=== PATIENT | female | born 2005 | race African-American/Black ===

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

== ENCOUNTER 2023-03-24 17:27 | Emergency (ER) | payer BC, OTHER ==
[2023-03-24 17:36] VITALS: BP 112/78; PULSE 77; RESP 18; TEMP 98.2
--- NOTE | 2023-03-24 17:47 | ED ---
General Adult HPI - General Chief complaint: Recheck/Abnormal Lab/Rx Stated complaint: Nexplanon Removal Time Seen by Provider: 03/24/23 17:38 Source: patient Mode of arrival: ambulatory Limitations: no limitations - History of Present Illness Initial comments: Patient is a 17-year-old female who presents to the emergency department seeking nexplanon removal. Patient states it is 3 months and she is having abnormal menstrual periods therefore she wants it out. No lightheadedness, dizziness, shortness of breath. She denies any pain in her arm. No fever, chills, nausea, vomiting. Patient does not have a meat manager currently. - Related Data Home Medications Medication Instructions Recorded Confirmed No Known Home Medications 08/09/19 08/09/19 Allergies Allergy/AdvReac Type Severity Reaction Status Date / Time acetaminophen [From Tylenol] Allergy Anaphylaxis Verified 03/24/23 17:36 ibuprofen [From Motrin] Allergy Anaphylaxis Verified 03/24/23 17:36 NSAIDS (Non-Steroidal Allergy Anaphylaxis Verified 03/24/23 17:36 Anti-Inflamma Review of Systems ROS Statement: Those systems with pertinent positive or pertinent negative responses have been documented in the HPI. ROS Other: All systems not noted in ROS Statement are negative. Past Medical History Past Medical History: Asthma Additional Past Medical History / Comment(s): migraines History of Any Multi-Drug Resistant Organisms: None Reported Past Surgical History: No Surgical Hx Reported Past Psychological History: No Psychological Hx Reported Smoking Status: Current every day smoker Past Alcohol Use History: None Reported Past Drug Use History: Marijuana General Exam Limitations: no limitations General appearance: alert, in no apparent distress Head exam: Present: atraumatic, normocephalic, normal inspection Eye exam: Present: normal appearance, PERRL, EOMI. Absent: scleral icterus, conjunctival injection, periorbital swelling Respiratory exam: Present: normal lung sounds bilaterally. Absent: respiratory distress, wheezes, rales, rhonchi, stridor Cardiovascular Exam: Present: regular rate, normal rhythm, normal heart sounds. Absent: systolic murmur, diastolic murmur, rubs, gallop, clicks Extremities exam: Present: other (nexplanon visualized and left arm no surrounding erythema, swelling, blanching, warmth, tenderness. Neurovascularly intact) Course Vital Signs 03/24/23 17:34 Temperature 98.2 F Pulse Rate 77 Respiratory 18 Rate Blood Pressure 112/78 O2 Sat by Pulse 99 Oximetry Medical Decision Making - Medical Decision Making Was pt. sent in by a medical professional or institution (DONITA Hauser, SLUDGE MILL OPERATOR, urgent care, hospital, or custodial...) When possible be specific @ -[No] Did you speak to anyone other than the patient for history (EMS, parent, family, police, friend...)? What history was obtained from this source @ -[No] Did you review nursing and triage notes (agree or disagree)? Why? @ -[I reviewed and agree with nursing and triage notes] Were old charts reviewed (outside hosp., previous admission, EMS record, old EKG, old radiological studies, urgent care reports/EKG's, custodial records)? Report findings @ -[No old charts were reviewed] Differential Diagnosis (chest pain, altered mental status, abdominal pain women, abdominal pain men, vaginal bleeding, weakness, fever, dyspnea, syncope, h eadache, dizziness, GI bleed, back pain, seizure, CVA, palpatations, mental health)? @ -[not applicable] EKG interpreted by me (3pts min.). @ -[As above] X-rays interpreted by me (1pt min.). @ -[None done] CT interpreted by me (1pt min.). @ -[None done] U/S interpreted by me (1pt. min.). @ -[None done] What testing was considered but not performed or refused? (CT, X-rays, U/S, labs)? Why? @ -[None] What meds were considered but not given or refused? Why? @ -[None] Did you discuss the management of the patient with other professionals (professionals i.e. DONITA Hauser, SLUDGE MILL OPERATOR, lab, RT, psych nurse, social media community manager, grocery stock clerk, teacher, airplane first officer, wrapper caser)? Give summary @ -[No] Was smoking cessation discussed for >3mins.? @ -[No] Was critical care preformed (if so, how long)? @ -[No] Were there social determinants of health that impacted care today? How? (Homelessness, low income, unemployed, alcoholism, drug addiction, transportation, low edu. Level, literacy, decrease access to med. care, retirement, rehab)? @ -[No] Was there de-escalation of care discussed even if they declined (Discuss DNR or withdrawal of care, Hospice)? DNR status @ -[No] What co-morbidities impacted this encounter? (DM, HTN, Smoking, COPD, CAD, Cancer, CVA, ARF, Chemo, Hep., AIDS, mental health diagnosis, sleep apnea, morbid obesity)? @ -[None] Was patient admitted / discharged? Hospital course, mention meds given and route, prescriptions, significant lab abnormalities, going to OR and other pertinent info. @ -Patient seeking nexplanon removal. There is no evidence of infection. Patient informed unfortunately we are not trained to perform removal in the emergency department. Patient is referred to a meat manager for further evaluation and management. Undiagnosed new problem with uncertain prognosis? @ -[No] Drug Therapy requiring intensive monitoring for toxicity (Heparin, Nitro, Insulin, Cardizem)? @ -[No] Were any procedures done? @ -[No] Diagnosis/symptom? @ -encounter for nexplanon removal Acute, or Chronic, or Acute on Chronic? @ -acute Uncomplicated (without systemic symptoms) or Complicated (systemic symptoms)? @ -uncomplicated Side effects of treatment? @ -[No] Exacerbation, Progression, or Severe Exacerbation? @ -[No] Poses a threat to life or bodily function? How? (Chest pain, [place], [place], pneumonia, PE, COPD, DKA, ARF, appy, cholecystitis, CVA, Diverticulitis, Homicidal, Suicidal, threat to staff... and all critical care pts) @ -[No] Dr. Goodwin is my attending Disposition Clinical Impression: Encounter for Nexplanon removal Disposition: HOME SELF-CARE Condition: Good Instructions (If sedation given, give patient instructions): Control Implant (DC) Additional Instructions: Follow up with gynecology in one to 2 days. Return to the emergency department if you experience new, concerning, or worsening symptoms. Is patient prescribed a controlled substance at d/c from ED?: No Referrals: None,Stated [Primary Care Provider] - 1-2 days Yuliya Lang MD [STAFF PHYSICIAN] - 1-2 days
== END 2023-03-24 17:58 | disposition home or self-care (01) ==
LOC: EC 17:27
DX: Z30.46 Encounter for surveillance of implantable subdermal contraceptive (principal); J45.909 Unspecified asthma, uncomplicated; F17.200 Nicotine dependence, unspecified, uncomplicated; F12.90 Cannabis use, unspecified, uncomplicated; Z88.6 Allergy status to analgesic agent
CPT/HCPCS: 99282

== ENCOUNTER 2023-09-19 20:48 | Emergency (ER) | payer OTHER ==
[2023-09-19 21:17] VITALS: RESP 18
--- NOTE | 2023-09-19 21:59 | ED ---
Fall HPI - General Chief Complaint: Fall Stated Complaint: Lacs on Right hand, Head Injury Time Seen by Provider: 09/19/23 21:38 Source: patient, RN notes reviewed, old records reviewed Mode of arrival: ambulatory Limitations: no limitations - History of Present Illness Initial Comments: This is a 17-year-old female who fell Going down some wet stairs. Patient did land on her right side arm hit the left side of her head. Patient does have a minor headache but is awake alert talking moving and has no significant nausea vomiting or other complaints. Patient complains of some pain to her right hand and some abrasions her fingers. 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 Fall Witnessed: yes, by family Place Fall Occurred: home Loss of Consciousness: none Prolonged Down Time?: no Symptoms Prior to Fall: none Location: head Location - Extremities: Right: Hand Severity: mild Severity scale (1-10): 1 Context: tripped/slipped Associated Symptoms: denies - Related Data Home Medications Medication Instructions Recorded Confirmed No Known Home Medications 08/09/19 08/09/19 Allergies Allergy/AdvReac Type Severity Reaction Status Date / Time acetaminophen [From Tylenol] Allergy Anaphylaxis Verified 03/24/23 17:36 ibuprofen [From Motrin] Allergy Anaphylaxis Verified 03/24/23 17:36 NSAIDS (Non-Steroidal Allergy Anaphylaxis Verified 03/24/23 17:36 Anti-Inflamma Review of Systems ROS Statement: Those systems with pertinent positive or pertinent negative responses have been documented in the HPI. ROS Other: All systems not noted in ROS Statement are negative. Past Medical History Past Medical History: Asthma Additional Past Medical History / Comment(s): migraines History of Any Multi-Drug Resistant Organisms: None Reported Past Surgical History: No Surgical Hx Reported Past Psychological History: Depression Smoking Status: Current every day smoker Past Alcohol Use History: None Reported Past Drug Use History: Marijuana General Exam - General Exam Comments Initial Comments: GCS 15 Limitations: no limitations General appearance: anxious Head exam: Present: atraumatic, normocephalic, normal inspection Eye exam: Present: normal appearance, PERRL, EOMI. Absent: scleral icterus, conjunctival injection, periorbital swelling ENT exam: Present: normal exam, mucous membranes moist Neck exam: Present: normal inspection. Absent: tenderness, meningismus, lymphadenopathy Respiratory exam: Present: normal lung sounds bilaterally. Absent: respiratory distress, wheezes, rales, rhonchi, stridor Cardiovascular Exam: Present: regular rate, normal rhythm, normal heart sounds. Absent: systolic murmur, diastolic murmur, rubs, gallop, clicks GI/Abdominal exam: Present: soft, normal bowel sounds. Absent: distended, tenderness, guarding, rebound, rigid Extremities exam: Present: normal inspection, full ROM, normal capillary refill, other (Abrasion to the fingers of right hand). Absent: tenderness, pedal edema, joint swelling, calf tenderness Back exam: Present: normal inspection Neurological exam: Present: alert, oriented X3, CN II-XII intact Psychiatric exam: Present: normal affect, normal mood Skin exam: Present: warm, dry, intact, normal color. Absent: rash Course Vital Signs 09/19/23 09/19/23 21:11 23:55 Temperature 98.1 F 98.6 F Pulse Rate 97 76 Respiratory 18 18 Rate Blood Pressure 123/79 116/72 O2 Sat by Pulse 98 98 Oximetry - Reevaluation(s) Reevaluation #1: 09/19/23 21:57 Medical records reviewed Reevaluation #2: 09/19/23 21:57 patient can be seen by psychiatry Reevaluation #3: 09/19/23 21:57 Patient informed results questions answered Reevaluation #4: 09/19/23 21:57 Was pt. sent in by a medical professional or institution (, PA, FOOD COUNTER WORKER, urgent care, hospital, or fpc...) When possible be specific @ -no Did you speak to anyone other than the patient for history (EMS, parent, family, police, friend...)? What history was obtained from this source @ -no Did you review nursing and triage notes (agree or disagree)? Why? @ -agree Are old charts reviewed (outside hosp., previous admission, EMS record, old EKG, old radiological studies, urgent care reports/EKG's, fpc records)? Report findings @ -yes Differential Diagnosis (chest pain, altered mental status, abdominal pain women, abdominal pain men, vaginal bleeding, weakness, fever, dyspnea, syncope, headache, dizziness, GI bleed, back pain, seizure, CVA, palpatations, mental health, musculoskeletal)? @ -prior EKG interpreted by me (3pts min.). @ -no X-rays interpreted by me (1pt min.). @ -yes CT interpreted by me (1pt min.). @ -no U/S interpreted by me (1pt. min.). @ -no What testing was considered but not performed or refused? (CT, X-rays, U/S, labs)? Why? @ -none What meds were considered but not given or refused? Why? @ -none Did you discuss the management of the patient with other professionals (professionals i.e. DrInés, PA, FOOD COUNTER WORKER, lab, RT, psych nurse, social media content specialist, soap drier operator, teacher, chief science officer, case management coordinator)? Give summary @ -no Was smoking cessation discussed for >3mins.? @ -no Was critical care preformed (if so, how long)? @ -no Were there social determinants of health that impacted care today? How? (Homelessness, low income, unemployed, alcoholism, drug addiction, transportation, low edu. Level, literacy, decrease access to med. care, usp, rehab)? @ -none Was there de-escalation of care discussed even if they declined (Discuss DNR or withdrawal of care, Hospice)? DNR status @ -no What co-morbidities impacted this encounter? (DM, HTN, Smoking, COPD, CAD, Cancer, CVA, ARF, Chemo, Hep., AIDS, mental health diagnosis, sleep apnea, morbid obesity)? @ -none Was patient admitted / discharged? Hospital course, mention meds given and route, prescriptions, significant lab abnormalities, going to OR and other pertinent info. @ - 17 female after trip and fall sustaining right hand abrasion and hematoma left occiput. No loss of consciousness GCS 15, patient is negative x-ray of hand. Patient has no other findings here in the emergency room. Patient is seen by psychiatry for some depression resources. Patient is given resources patient is not Homicidal or suicidal can be discharged home Discharge Undiagnosed new problem with uncertain prognosis? @ -no Drug Therapy requiring intensive monitoring for toxicity (Heparin, Nitro, Insulin, Cardizem)? @ -no Were any procedures done? @ -no Diagnosis/symptom? @ -Anxiety, depression, fall, head contusion Acute, or Chronic, or Acute on Chronic? @ -Acute Uncomplicated (without systemic symptoms) or Complicated (systemic symptoms)? @ -Complicated Side effects of treatment? @ -no Exacerbation, Progression, or Severe Exacerbation? @ -exacerbation Poses a threat to life or bodily function? How? (Chest pain, [place], [place], pneumonia, PE, COPD, DKA, ARF, appy, cholecystitis, CVA, Diverticulitis, Homicidal, Suicidal, threat to staff... and all critical care pts) @ -no Medical Decision Making - Medical Decision Making 17 female after trip and fall sustaining right hand abrasion and hematoma left occiput. No loss of consciousness GCS 15, patient is negative x-ray of hand. Patient has no other findings here in the emergency room. Patient is seen by psychiatry for some depression resources. Patient is given resources patient is not Homicidal or suicidal can be discharged home Disposition Clinical Impression: Fall, Hematoma of left parietal scalp, Abrasion hand, Depression, Anxiety Disposition: HOME SELF-CARE Condition: Good Instructions (If sedation given, give patient instructions): Stress (ED), Abrasion (ED) Is patient prescribed a controlled substance at d/c from ED?: No Referrals: None,Stated [Primary Care Provider] - 1-2 days Forms: Outpatient Counseling Time of Disposition: 22:30
--- NOTE | 2023-09-19 23:04 | XR ---
EXAM: XR Right Hand Complete, 3 or More Views CLINICAL HISTORY: ITS.REASON XR Reason: fall TECHNIQUE: Frontal, lateral and oblique views of the right hand. COMPARISON: No relevant prior studies available. FINDINGS: Bones/joints: Unremarkable. No acute fracture. No dislocation. Soft tissues: Unremarkable. No radiopaque foreign body. IMPRESSION: Normal right hand x-rays.
[2023-09-20 00:26] VITALS: BP 116/72; PULSE 76; TEMP 98.6
== END 2023-09-19 23:58 | disposition home or self-care (01) ==
LOC: EC 20:48
DX: S00.03XA Contusion of scalp, initial encounter (principal); S60.511A Abrasion of right hand, initial encounter; F32.A Depression, unspecified; F41.9 Anxiety disorder, unspecified; J45.909 Unspecified asthma, uncomplicated; F12.90 Cannabis use, unspecified, uncomplicated; F17.200 Nicotine dependence, unspecified, uncomplicated; Z88.6 Allergy status to analgesic agent; Z88.8 Allergy status to other drugs, medicaments and biological substances; W10.8XXA Fall (on) (from) other stairs and steps, initial encounter
CPT/HCPCS: 99284

== ENCOUNTER 2024-02-27 21:39 | Emergency (ER) | payer OTHER ==
[2024-02-27 21:55] VITALS: PULSE 93; TEMP 98.8
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
[2024-02-27] MEDS: DIPH,PERTUS(ACELL)TETVAC-LF 0.5 ML VIAL IM ONE (23:16)
[2024-02-27] MEDS: MORPHINE SULFATE 4 MG/ML SYRINGE IM STA (23:17)
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
[2024-02-28 00:32] VITALS: BP 111/73; RESP 16
== END 2024-02-28 01:18 | disposition home or self-care (01) ==
LOC: EC 21:39
DX: S70.12XA Contusion of left thigh, initial encounter (principal); F12.90 Cannabis use, unspecified, uncomplicated; F14.90 Cocaine use, unspecified, uncomplicated; F17.200 Nicotine dependence, unspecified, uncomplicated; Z88.8 Allergy status to other drugs, medicaments and biological substances; Z88.6 Allergy status to analgesic agent; Z23 Encounter for immunization; Y04.8XXA Assault by other bodily force, initial encounter
CPT/HCPCS: 72070; 72100; 71046; 72125; 70450; 90715; 99284; 90471; 96372; J2270